=== PATIENT | female | born 2000 | race Caucasian/White ===

== ENCOUNTER 2024-10-23 20:00 | Inpatient (IN) | payer OTHER ==
[2024-10-23 21:16] VITALS: BMI 27.7
[2024-10-23] MEDS: LACTATED RINGERS SOLUTION 1,000 ML/1,000 ML INFUS.BAG IV SCH (21:30)
[2024-10-23 21:49] LABS: ABSOLUTE IMMATURE GRANULOCYTES 0.15 x10^3/uL (0.0-0.031); BASOPHILS # 0.05 x10^3/uL (0.01-0.08); EOSINOPHIL % 0.4 % (0.7-5.8); EOSINOPHILS # 0.04 x10^3/uL (0.04-0.36); MCHC 31.7 g/dl (32.2-35.5); MEAN CELL VOLUME 77.2 fl (79.4-94.8); MEAN PLT VOLUME 11.5 fl (9.4-12.3); MONOCYTE # 0.87 x10^3/uL (0.24-0.86); MONOCYTE % 8.1 % (4.7-12.5); RDW 14.6 % (12.1-16.5)
[2024-10-23 22:02] LABS: INR 0.98 (0.83-1.09); PROTHROMBIN TIME (PATIENT) 10.8 SEC (9.7-13.0)
[2024-10-23 22:05] LABS: ACTIVATED PTT 23.9 SECONDS (25.2-36.5)
[2024-10-23] MEDS ORDERED: ZOLPIDEM TARTRATE 5 MG TABLET ONE (22:45)
[2024-10-23] MEDS: ZOLPIDEM TARTRATE 5 MG TABLET PO ONE (22:45)
[2024-10-23] MEDS: DINOPROSTONE 10 MG VAGINAL SUPPOSITORY VG ONE (22:56)
[2024-10-23 23:40] LABS: GLUCOSE,RANDOM 77.0 mg/dL (74-106)
[2024-10-23 23:42] LABS: CO2 19.0 mmol/L (21-32)
[2024-10-23 23:46] LABS: CREATININE 0.51 mg/dL (0.55-1.3)
[2024-10-24] MEDS ORDERED: OXYTOCIN 30 UNITS in 0.9% NS 30 UNIT/500 ML INFUS.BAG IVPB ONE (06:23)
[2024-10-24] MEDS: OXYTOCIN 30 UNITS in 0.9% NS 30 UNIT/500 ML INFUS.BAG IVPB SCH (06:30)
[2024-10-24] MEDS ORDERED: FENTANYL/BUPIVACAINE/NS/PF - PCEA - 50 ML DISP.SYRIN EP ONE ×2 (08:01→12:37)
[2024-10-24] MEDS: FENTANYL/BUPIVACAINE/NS/PF - PCEA - 50 ML DISP.SYRIN EP SCH (08:18)
[2024-10-24] MEDS ORDERED: NALOXONE HCL 0.4 MG/ML VIAL IVPUSH PRN (10:02)
[2024-10-24] MEDS ORDERED: OXYTOCIN 20 UNITS in 0.9% NS 20 UNIT/1,000 ML INFUS.BAG IV ONE (11:37)
[2024-10-24] MEDS ORDERED: LIDOCAINE HCL 1% PRESERVATIVE FREE - 30ML VIAL ONE (11:37)
[2024-10-24] MEDS ORDERED: IBUPROFEN 600 MG TABLET (FP) PO ONE (15:06)
[2024-10-24] MEDS: IBUPROFEN 600 MG TABLET (FP) PO ONE (15:10)
[2024-10-24] MEDS: METHYLERGONOVINE MALEATE 0.2 MG/1 ML AMP IM ONE (17:32)
[2024-10-24 17:59] VITALS: RESP 18
[2024-10-24] MEDS: LACTATED RINGERS SOLUTION 1,000 ML IV ONE (22:35)
[2024-10-24] MEDS: ACETAMINOPHEN 325 MG TABLET (FP) PO PRN (22:54)
[2024-10-24] MEDS: BENZOCAINE 28 GM HEMORRHOIDAL OINTMENT TP PRN (23:03)
[2024-10-24] MEDS: WITCH HAZEL 50% (TUCKS) 40 PAD/JAR PAD TP PRN (23:03)
[2024-10-25] MEDS: IBUPROFEN 600 MG TABLET (FP) PO PRN (01:20)
[2024-10-25 08:25] LABS: MCHC 31.3 g/dl (32.2-35.5); MEAN CELL VOLUME 77.5 fl (79.4-94.8); MEAN PLT VOLUME 11.1 fl (9.4-12.3); RDW 15.0 % (12.1-16.5)
[2024-10-25] MEDS: ACETAMINOPHEN 500 MG TABLET (FP) PO PRN (09:16)
[2024-10-25] MEDS: IRON SUCROSE INJECTION 300 MG in SODIUM CHLORIDE 235 ML IVPB ONE (12:21)
[2024-10-26] MEDS: IRON SUCROSE INJECTION 200 MG in SODIUM CHLORIDE 100 ML IVPB ONE (16:42)
[2024-10-26] MEDS: BENZOCAINE 20% 57 GM BOTTLE TP PRN (17:14)
[2024-10-26] MEDS: SENNOSIDES/DOCUSATE COMBO (SENNA PLUS) TABLET (UD) PO PRN (21:21)
[2024-10-27 09:10] VITALS: BP 106/65; PULSE 80; TEMP 98.2
== END 2024-10-27 14:15 | disposition home or self-care (01) | DRG 560 ==
LOC: JLDR 20:00 → J3W 10-24 17:15
PROVIDERS: ADMIT Specialist; ATTEND Specialist
PROC: 10D07Z6 Extraction of Products of Conception, Vacuum, Via Natural or Artificial Opening (ICD-10-PCS; principal; 2024-10-24)
PROC: 0W8NXZZ Division of Female Perineum, External Approach (ICD-10-PCS; 2024-10-24)
DX: O99.02 Anemia complicating childbirth (principal); Z3A.39 39 weeks gestation of pregnancy; Z37.0 Single live birth
CPT/HCPCS: 36415; 59409; 80048; 85025; 85027; 85610; 85730; 86780; 86850; 86900; 86901; J1756